=== PATIENT | female | born 1965 | race African-American/Black ===

== ENCOUNTER 2016-12-13 16:30 | Inpatient (IN) | payer MEDICAID ==
[~2016-12-13] VITALS: Ht 165.1 cm; Wt 88.4 kg
[~2016-12-13 16:30] MED LIST: GABA600T2 PO; HYDR8TAB27 PO; INSU100V8 SQ; LISI-167 PO; Morphine ER PO; TRAZ100T15 PO; morphine
[2016-12-13] MEDS ORDERED: SODIUM CHLORIDE FLUSH 10ML SYR IVF ONE (17:00)
[2016-12-13] MEDS ORDERED: ONDANSETRON 2MG/ML, 2ML IVPush ONE (17:00)
[2016-12-13] MEDS ORDERED: ASPIRIN 81 MG TABLET CHEW PO ONE (17:00)
[2016-12-13] MEDS ORDERED: MORPHINE SULFATE 4 MG/ML, 1ML ONE ×2 (17:07→20:15)
[2016-12-13] MEDS ORDERED: ONDANSETRON 2MG/ML, 2ML ONE (17:08)
[2016-12-13 17:29] LABS: BLOOD UREA NITROGEN 11 mg/dL (7-18)
[2016-12-13 17:34] LABS: IS PT STATUS REG ER OR PRE ER? YES
[2016-12-13] MEDS ORDERED: ASPIRIN 81 MG TABLET CHEW ONE (18:12)
[2016-12-13] MEDS: MORPHINE SULFATE 4 MG/ML, 1ML IVPush PRN ×2 (18:27→20:19)
[2016-12-13] MEDS ORDERED: SODIUM CHLORIDE FLUSH 10ML SYR IVF PRN (20:00)
[2016-12-13] MEDS ORDERED: NITROGLYCERIN 0.4 MG BOTTLE (25 TABS) SL PRN (21:30)
[2016-12-13] MEDS: SODIUM CHLORIDE FLUSH 3ML SYRINGE IVF SCH (21:30)
[2016-12-13] MEDS ORDERED: BISACODYL 10 MG SUPP PR PRN (21:30)
[2016-12-13] MEDS ORDERED: ACETAMINOPHEN 325 MG TABLET PO PRN (21:30)
[2016-12-13] MEDS ORDERED: HYDROmorphone 2MG TABLET PO PRN (21:30)
[2016-12-13] MEDS ORDERED: TRAZODONE 100MG TABLET PO SCH (21:30)
[2016-12-13] MEDS ORDERED: INSULIN DETEMIR 100 UNITS/ML, PEN SQ-INSULIN SCH (21:30)
[2016-12-13] MEDS ORDERED: morphine SULFATE 10 MG/ML, 1ML IVPush PRN (21:30)
[2016-12-13] MEDS ORDERED: POLYETHYLENE GLYCOL 17 GM PACKET PO PRN (21:30)
[2016-12-13] MEDS ORDERED: ONDANSETRON 2MG/ML, 2ML IVPush PRN (21:30)
[2016-12-13 22:00] VITALS: BP_SYST 166; BP_SYST 171; BP_SYST 172; BP_DIAS 107; BP_DIAS 112; BP_DIAS 118
[2016-12-13 22:07] VITALS: BP 171/112
[2016-12-13] MEDS ORDERED: FURO-93 PO (22:13)
[2016-12-13] MEDS ORDERED: TOPI15CA4 PO (22:14)
[2016-12-13] MEDS ORDERED: POTA10TA11 PO (22:16)
[2016-12-13] MEDS ORDERED: CARV3.12 PO (22:17)
[2016-12-13] MEDS ORDERED: METH500T7 PO (22:20)
[2016-12-13] MEDS ORDERED: GI Cocktail PO (22:21)
[2016-12-13 23:49] LABS: IS PT STATUS REG ER OR PRE ER? NO
[2016-12-14] MEDS ORDERED: METHOCARBAMOL 500 MG TABLET PO PRN (00:30)
[2016-12-14] MEDS ORDERED: MAALOX/HYOSCYAMINE/LIDOCAINE 45 ML BOTTLE PO PRN (00:30)
[2016-12-14] MEDS: GABAPENTIN 300 MG CAPSULE PO SCH ×3 (01:05→16:48)
[2016-12-14] MEDS: HEPARIN 5,000 UNITS/ML, 1ML SQ SCH ×3 (01:05→16:48)
[2016-12-14] MEDS ORDERED: LABETALOL 5MG/ML, 20ML IVPush PRN (01:30)
[2016-12-14 01:40] VITALS: BP 147/97
[2016-12-14 05:42] LABS: ASPARTATE AMINO TRANSFERASE 28 U/L (15-37); BLOOD UREA NITROGEN 14 mg/dL (7-18)
[2016-12-14 05:48] LABS: IS PT STATUS REG ER OR PRE ER? NO
[2016-12-14] MEDS ORDERED: ASPIRIN 81 MG TABLET EC PO SCH (06:00)
[2016-12-14] MEDS ORDERED: CARVEDILOL 3.125 MG TABLET PO SCH (06:00)
[2016-12-14 06:20] LABS: DIFF TOTAL CELLS COUNTED 100 CELL DIFF
[2016-12-14 06:22] LABS: VERIFY COUNTS? YES
[2016-12-14 07:02] VITALS: BP 149/85
[2016-12-14] MEDS ORDERED: POTASSIUM CHLORIDE 10 MEQ TABLET.ER PO SCH (08:00)
[2016-12-14] MEDS ORDERED: REGADENOSON 0.4 MG/5 ML SYRINGE ONE (08:03)
[2016-12-14] MEDS ORDERED: FUROSEMIDE 20 MG TABLET PO SCH (09:00)
[2016-12-14] MEDS: SODIUM CHLORIDE FLUSH 3ML SYRINGE IVF SCH (09:00)
[2016-12-14] MEDS ORDERED: SENNA/DOCUSATE TABLET PO SCH (09:00)
[2016-12-14] MEDS ORDERED: LISINOPRIL 10 MG TABLET PO SCH (09:00)
[2016-12-14] MEDS ORDERED: INSULIN DETEMIR 100 UNITS/ML, PEN SQ-INSULIN SCH (09:00)
[2016-12-14 13:17] VITALS: BP 137/93
[2016-12-14] MEDS ORDERED: ASPI-515 PO (15:58)
== END 2016-12-14 17:13 | disposition home or self-care (01) | DRG 313 ==
LOC: ED 19:16 → EDIP 19:56 → 5SO 23:15
PROVIDERS: ADMIT Internal Medicine; ATTEND Internal Medicine
PROC: 5A09457 Assistance with Respiratory Ventilation, 24-96 Consecutive Hours, Continuous Positive Airway Pressure (ICD-10-PCS; principal; 2016-12-13)
DX: R07.89 Other chest pain (principal); F11.20 Opioid dependence, uncomplicated; D68.59 Other primary thrombophilia; E44.0 Moderate protein-calorie malnutrition; Z86.718 Personal history of other venous thrombosis and embolism; I10 Essential (primary) hypertension; E11.65 Type 2 diabetes mellitus with hyperglycemia; Z79.4 Long term (current) use of insulin; G47.33 Obstructive sleep apnea (adult) (pediatric); Z86.711 Personal history of pulmonary embolism; G43.909 Migraine, unspecified, not intractable, without status migrainosus; F12.10 Cannabis abuse, uncomplicated; I07.1 Rheumatic tricuspid insufficiency; F17.210 Nicotine dependence, cigarettes, uncomplicated; Z80.9 Family history of malignant neoplasm, unspecified; Z88.1 Allergy status to other antibiotic agents; J45.909 Unspecified asthma, uncomplicated; Z90.710 Acquired absence of both cervix and uterus; Z95.0 Presence of cardiac pacemaker; Z79.82 Long term (current) use of aspirin; Z68.32 Body mass index [BMI] 32.0-32.9, adult
CPT/HCPCS: 36415; 71010; 78452; 80048; 80053; 80061; 82040; 82962; 83036; 83880; 84439; 84443; 84484; 85025; 93005; 93017; 94660; 96374; 96375; 96376; J1644; J2405; J2785; A9502; C9898; J1815

== ENCOUNTER 2016-12-20 21:11 | Emergency (ER) | payer MEDICAID ==
[~2016-12-20] VITALS: Ht 165.1 cm; Wt 89.4 kg
[~2016-12-20 21:11] MED LIST changes: +ASPI-515 PO; +CARV3.12 PO; +FURO-93 PO; +GI Cocktail PO; +METH500T7 PO; +POTA10TA11 PO; +TOPI15CA4 PO
[2016-12-20] MEDS ORDERED: SODIUM CHLORIDE 0.9% 1,000ML IVBOLUS ONE (22:30)
[2016-12-20] MEDS ORDERED: OMNIPAQUE 350 MG/ML, 100ML BOTTLE ONE (22:53)
[2016-12-20 22:55] LABS: BLOOD UREA NITROGEN 12 mg/dL (7-18)
[2016-12-20 23:02] LABS: IS PT STATUS REG ER OR PRE ER? YES
[2016-12-21 00:18] VITALS: BP 155/78
== END 2016-12-21 00:18 | disposition home or self-care (01) ==
LOC: ED 23:46
DX: R07.89 Other chest pain (principal); I10 Essential (primary) hypertension; E11.65 Type 2 diabetes mellitus with hyperglycemia; Z86.718 Personal history of other venous thrombosis and embolism; Z86.711 Personal history of pulmonary embolism; J45.909 Unspecified asthma, uncomplicated
CPT/HCPCS: 36415; 71275; 80048; 82040; 84484; 85025; 93005; 96360; 99285; J7030; Q9967

== ENCOUNTER 2018-04-11 05:08 | Emergency (ER) | payer MEDICAID ==
[~2018-04-11] VITALS: Ht 165.1 cm; Wt 103.9 kg
[~2018-04-11 05:08] MED LIST changes: +TRAZ-137 PO; -TRAZ100T15 PO
[2018-04-11] MEDS ORDERED: ONDANSETRON ODT 4 MG ONE (05:57)
[2018-04-11] MEDS ORDERED: HYDROmorphone 2 MG/ML, 1ML ONE (05:58)
[2018-04-11] MEDS ORDERED: ONDANSETRON ODT 4 MG PO ONE (06:00)
[2018-04-11] MEDS ORDERED: ONDANSETRON 2MG/ML, 2ML IVPush ONE (06:00)
[2018-04-11] MEDS ORDERED: HYDROmorphone 2 MG/ML, 1ML IM ONE (06:00)
[2018-04-11 07:19] VITALS: BP 141/84
== END 2018-04-11 07:41 | disposition home or self-care (01) ==
LOC: ED 06:31
DX: S16.1XXA Strain of muscle, fascia and tendon at neck level, initial encounter (principal); X58.XXXA Exposure to other specified factors, initial encounter; Y93.89 Activity, other specified; Y92.89 Other specified places as the place of occurrence of the external cause; Y99.8 Other external cause status; M54.12 Radiculopathy, cervical region; I10 Essential (primary) hypertension; E11.9 Type 2 diabetes mellitus without complications; J45.909 Unspecified asthma, uncomplicated; G89.29 Other chronic pain; M54.9 Dorsalgia, unspecified
CPT/HCPCS: 72050; 96372; 99284; J1170; Q0162

== ENCOUNTER 2018-04-24 13:44 | Emergency (ER) | payer MEDICAID ==
[~2018-04-24] VITALS: Ht 165.1 cm; Wt 104.9 kg
[2018-04-24] MEDS ORDERED: METOCLOPRAMIDE 10MG TABLET ONE (14:57)
[2018-04-24] MEDS ORDERED: DIPHENHYDRAMINE 25 MG CAPSULE ONE (14:57)
[2018-04-24] MEDS ORDERED: KETOROLAC 30 MG/1 ML ONE (14:57)
[2018-04-24] MEDS ORDERED: METOCLOPRAMIDE 10MG TABLET PO ONE (15:00)
[2018-04-24] MEDS ORDERED: KETOROLAC 30 MG/1 ML IM ONE (15:00)
[2018-04-24] MEDS ORDERED: DIPHENHYDRAMINE 25 MG CAPSULE PO ONE (15:00)
[2018-04-24 16:53] VITALS: BP 148/86
== END 2018-04-24 16:55 | disposition home or self-care (01) ==
LOC: ED 16:10
DX: S82.252A Displaced comminuted fracture of shaft of left tibia, initial encounter for closed fracture (principal); G43.909 Migraine, unspecified, not intractable, without status migrainosus; I10 Essential (primary) hypertension; E11.9 Type 2 diabetes mellitus without complications; Z88.0 Allergy status to penicillin; Z88.6 Allergy status to analgesic agent; Z88.5 Allergy status to narcotic agent; W01.0XXA Fall on same level from slipping, tripping and stumbling without subsequent striking against object, initial encounter; Y93.89 Activity, other specified; Y92.89 Other specified places as the place of occurrence of the external cause; Y99.8 Other external cause status
CPT/HCPCS: 29515; 73590; 73610; 73700; 96372; 99284; J1885; Q0163

== ENCOUNTER 2018-05-07 08:42 | Emergency (ER) | payer MEDICAID ==
[~2018-05-07] VITALS: Ht 165.1 cm; Wt 103.1 kg
[2018-05-07] MEDS ORDERED: ALBUTEROL/IPRATROPIUM 2.5MG/0.5MG, 3 ML NPPB SCH (09:30)
[2018-05-07] MEDS ORDERED: ALBUTEROL SULFATE 2.5 MG/3 ML NPPB ONE (09:55)
[2018-05-07] MEDS ORDERED: ALBUTEROL SULFATE 2.5MG/0.5ML ONE (09:55)
[2018-05-07] MEDS ORDERED: ALBUTEROL/IPRATROPIUM 2.5MG/0.5MG, 3 ML ONE (09:55)
[2018-05-07] MEDS ORDERED: ALBUTEROL/IPRATROPIUM 2.5MG/0.5MG, 3 ML NEB ONE (09:55)
[2018-05-07 10:00] VITALS: BP 146/119
== END 2018-05-07 10:40 | disposition home or self-care (01) ==
LOC: ED 09:10
DX: J45.41 Moderate persistent asthma with (acute) exacerbation (principal); M75.31 Calcific tendinitis of right shoulder; I10 Essential (primary) hypertension; E11.9 Type 2 diabetes mellitus without complications; J45.909 Unspecified asthma, uncomplicated; G43.909 Migraine, unspecified, not intractable, without status migrainosus; M54.9 Dorsalgia, unspecified; M54.2 Cervicalgia; G89.29 Other chronic pain; Z79.899 Other long term (current) drug therapy
CPT/HCPCS: 72050; 73030; 93005; 94640; 99284; J7512; J7613; J7620

== ENCOUNTER 2018-08-15 04:12 | Emergency (ER) | payer MEDICAID ==
[~2018-08-15] VITALS: Ht 162.6 cm; Wt 96.7 kg
[~2018-08-15 04:12] MED LIST changes: -GABA600T2 PO; +GABA600T7 PO
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
[2018-08-15] MEDS ORDERED: ALBUTEROL/IPRATROPIUM 2.5MG/0.5MG, 3 ML NPPB SCH (05:00)
[2018-08-15 05:27] LABS: ALBUMIN 3.2 g/dL (3.4-5.0); ANION GAP 10 mmol/L (5-15); CALCIUM 9.1 mg/dL (8.5-10.1); CHLORIDE 100 mmol/L (98-107)
[2018-08-15 05:28] LABS: CREATININE 1.14 mg/dL (0.55-1.02)
[2018-08-15 05:41] LABS: BASOPHILS # (AUTO) 0.01 x10^3/uL (0-0.1); BASOPHILS % (AUTO) 0 % (0-1); EOSINOPHILS # (AUTO) 0.01 x10^3/uL (0-0.4); EOSINOPHILS % (AUTO) 0 % (1-7); LYMPHOCYTES # (AUTO) 1.19 x10^3/uL (1-3.4); LYMPHOCYTES % (AUTO) 29 % (22-44); MD NO; MEAN CORPUSCULAR HEMOGLOBIN 27.2 pg (27.0-34.8); MEAN CORPUSCULAR HGB CONC 33.2 g/dL (32.4-35.8); MEAN CORPUSCULAR VOLUME 81.9 fL (80-100); MEAN PLATELET VOLUME 9.8 fL (7.4-10.4); MONOCYTES # (AUTO) 0.48 x10^3/uL (0.2-0.8); MONOCYTES % (AUTO) 12 % (2-9); NEUTROPHILS # (AUTO) 2.45 x10^3/uL (1.8-6.8); NEUTROPHILS % (AUTO) 59 % (42-75); PLATELET COUNT 145 x10^3/uL (130-400); RED CELL DISTRIBUTION WIDTH 16.8 % (9.6-15.2)
[2018-08-15 05:54] VITALS: BP 119/70
--- NOTE | 2018-08-15 05:54 | NUR ---
LAB AT BEDSIDE FOR DRAW. PT JUST BACK FROM CXR. NO IMMEDIATE NEEDS. VSS. CALL LIGHT WITHIN REACH.
[2018-08-15 06:05] LABS: PH, VENOUS 7.417 pH (7.320-7.420)
[2018-08-15] MEDS ORDERED: SODIUM CHLORIDE 0.9% 1,000ML IVBOLUS ONE (06:30)
[2018-08-15 06:43] LABS: ACETONE, SERUM Small (20mg/dL) mg/dL (Negative)
--- NOTE | 2018-08-15 06:56 | NUR ---
I AM ASSUMING CARE OF THIS PT AT THIS TIME FROM AZUCENA (KAVYA) AT THIS TIME. SBAR REPORT WAS EXCHANGED AT THE BEDSIDE.
--- NOTE | 2018-08-15 07:28 | NUR ---
PT TO AND FROM CT W TECH. SHE TOLERATED THE IMAGING WELL. WE WILL AWAIT RESULTS, AND I WILL MONITOR AND TREAT ORDERED, WELL PRN.
== END 2018-08-15 08:08 | disposition home or self-care (01) ==
LOC: ED 07:04
DX: J18.9 Pneumonia, unspecified organism (principal); E11.65 Type 2 diabetes mellitus with hyperglycemia; I10 Essential (primary) hypertension; G43.909 Migraine, unspecified, not intractable, without status migrainosus; Z88.1 Allergy status to other antibiotic agents; Z79.899 Other long term (current) drug therapy; Z95.0 Presence of cardiac pacemaker; Z90.710 Acquired absence of both cervix and uterus; Z79.84 Long term (current) use of oral hypoglycemic drugs; Z79.4 Long term (current) use of insulin
CPT/HCPCS: 36415; 71046; 71250; 80048; 82010; 82040; 82803; 85025; 93005; 94640; 96360; 99284; J7030; J7512; J7620

== ENCOUNTER 2019-04-24 22:15 | Emergency (ER) | payer OTHER, MEDICAID ==
[~2019-04-24] VITALS: Ht 165.1 cm; Wt 97.0 kg
[~2019-04-24 22:15] MED LIST changes: +SUMA100T4 PO
[2019-04-24 22:51] LABS: BASOPHILS # (AUTO) 0.03 x10^3/uL (0-0.1); BASOPHILS % (AUTO) 0 % (0-1); EOSINOPHILS % (AUTO) 2 % (1-7); LYMPHOCYTES # (AUTO) 2.25 x10^3/uL (1-3.4); LYMPHOCYTES % (AUTO) 33 % (22-44); MD NO; MEAN CORPUSCULAR HEMOGLOBIN 29.6 pg (27.0-34.8); MEAN CORPUSCULAR HGB CONC 32.5 g/dL (32.4-35.8); MEAN PLATELET VOLUME 8.9 fL (7.4-10.4); MONOCYTES # (AUTO) 0.51 x10^3/uL (0.2-0.8); MONOCYTES % (AUTO) 8 % (2-9); NEUTROPHILS # (AUTO) 3.96 x10^3/uL (1.8-6.8); NEUTROPHILS % (AUTO) 58 % (42-75); PLATELET COUNT 198 x10^3/uL (130-400); RED BLOOD COUNT 4.61 x10^6/uL (3.82-5.3)
[2019-04-24] MEDS ORDERED: ONDANSETRON 2MG/ML, 2ML IVPush ONE (23:00)
[2019-04-24] MEDS ORDERED: SODIUM CHLORIDE FLUSH 10ML SYR IVF ONE (23:00)
[2019-04-24 23:02] LABS: ALANINE AMINOTRANSFERASE 21 U/L (12-78); ALBUMIN 3.3 g/dL (3.4-5.0); ANION GAP 7 mmol/L (5-15); CALCIUM 9.4 mg/dL (8.5-10.1); CHLORIDE 111 mmol/L (98-107); CREATININE 1.07 mg/dL (0.55-1.02)
[2019-04-24 23:07] LABS: ALKALINE PHOSPHATASE 99 U/L (45-117); BILIRUBIN,TOTAL 0.2 mg/dL (0.2-1.0); TOTAL PROTEIN 7.4 g/dL (6.4-8.2); TROPONIN I < 0.015 ng/mL (0.000-0.045)
[2019-04-24 23:13] LABS: INTERNATIONAL NORMALIZED RATIO 0.99 (0.93-1.1); PROTHROMBIN TIME 10.4 Seconds (9.6-11.5)
[2019-04-24] MEDS ORDERED: MORPHINE SULFATE 4 MG/ML, 1ML ONE (23:23)
[2019-04-24] MEDS ORDERED: ONDANSETRON 2MG/ML, 2ML ONE (23:23)
[2019-04-24] MEDS: MORPHINE SULFATE 4 MG/ML, 1ML IVPush PRN (23:29)
--- NOTE | 2019-04-24 23:36 | NUR ---
PIV PLACED. PT MEDICATED FOR PAIN. PT LAYING ON BED IN NAD. VSS. CALL LIGHT IN REACH
--- NOTE | 2019-04-25 00:51 | NUR ---
CT PENDING IV
[2019-04-25] MEDS ORDERED: MORPHINE SULFATE 4 MG/ML, 1ML ONE (00:58)
[2019-04-25] MEDS: MORPHINE SULFATE 4 MG/ML, 1ML IVPush PRN (01:00)
[2019-04-25 01:02] VITALS: BP 130/79
--- NOTE | 2019-04-25 01:03 | NUR ---
PT REMEDICATED FOR PAIN. VSS. PT WAITING FOR CT
--- NOTE | 2019-04-25 01:14 | NUR ---
PT TO CT
[2019-04-25] MEDS ORDERED: OMNIPAQUE 350 MG/ML, 100ML BOTTLE ONE (01:16)
== END 2019-04-25 02:34 | disposition home or self-care (01) ==
LOC: ED 22:46
DX: K27.3 Acute peptic ulcer, site unspecified, without hemorrhage or perforation (principal); R10.13 Epigastric pain; I10 Essential (primary) hypertension; E11.21 Type 2 diabetes mellitus with diabetic nephropathy; J45.909 Unspecified asthma, uncomplicated
CPT/HCPCS: 36415; 71045; 74177; 76700; 80053; 83690; 84484; 85025; 85610; 85730; 93005; 96374; 96375; 96376; 99284; J2270; J2405; Q9967

== ENCOUNTER 2019-05-04 17:41 | Emergency (ER) | payer OTHER, MEDICAID ==
[~2019-05-04] VITALS: Ht 165.1 cm; Wt 92.6 kg
[2019-05-04] MEDS ORDERED: HYDROmorphone 1 MG/ML, 1ML VIAL IM ONE (20:30)
[2019-05-04] MEDS ORDERED: KETOROLAC 30 MG/1 ML IM ONE (20:30)
[2019-05-04] MEDS ORDERED: KETOROLAC 60 MG/2 ML ONE (20:40)
[2019-05-04] MEDS ORDERED: HYDROmorphone 1 MG/ML, 1ML VIAL ONE (20:40)
[2019-05-04 21:50] VITALS: BP 156/71
== END 2019-05-04 21:52 | disposition home or self-care (01) ==
LOC: ED 21:46
DX: M54.42 Lumbago with sciatica, left side (principal); I10 Essential (primary) hypertension; G89.29 Other chronic pain; J45.909 Unspecified asthma, uncomplicated; E11.9 Type 2 diabetes mellitus without complications
CPT/HCPCS: 72110; 96372; 99283; J1170; J1885; J7512

== ENCOUNTER 2019-05-14 12:44 | Emergency (ER) | payer MEDICAID, OTHER ==
[~2019-05-14] VITALS: Ht 162.6 cm; Wt 90.9 kg
[2019-05-14 12:55] VITALS: BP 161/87
== END 2019-05-14 14:00 | disposition home or self-care (01) ==
LOC: ED 13:50
DX: J00 Acute nasopharyngitis [common cold] (principal); R06.00 Dyspnea, unspecified; R07.89 Other chest pain; I10 Essential (primary) hypertension; J45.909 Unspecified asthma, uncomplicated; E11.9 Type 2 diabetes mellitus without complications; F17.200 Nicotine dependence, unspecified, uncomplicated; Z87.11 Personal history of peptic ulcer disease; Z90.710 Acquired absence of both cervix and uterus; Z95.0 Presence of cardiac pacemaker
CPT/HCPCS: 71046; 99283

== ENCOUNTER 2019-05-19 22:09 | Emergency (ER) | payer MEDICAID ==
[~2019-05-19] VITALS: Ht 165.1 cm; Wt 92.3 kg
[2019-05-19 22:13] VITALS: BP 118/79
[2019-05-19] MEDS ORDERED: ALBUTEROL/IPRATROPIUM 2.5MG/0.5MG, 3 ML ONE (22:53)
[2019-05-19] MEDS ORDERED: ALBUTEROL/IPRATROPIUM 2.5MG/0.5MG, 3 ML NPPB ONE (23:00)
[2019-05-19] MEDS ORDERED: IBUPROFEN 600 MG TABLET PO ONE (23:00)
[2019-05-19] MEDS ORDERED: IBUPROFEN 200 MG TABLET ONE (23:55)
== END 2019-05-20 00:08 | disposition home or self-care (01) ==
LOC: ED 23:59
DX: S93.402A Sprain of unspecified ligament of left ankle, initial encounter (principal); S93.602A Unspecified sprain of left foot, initial encounter; H69.83 Other specified disorders of Eustachian tube, bilateral; J45.901 Unspecified asthma with (acute) exacerbation; F17.210 Nicotine dependence, cigarettes, uncomplicated; R68.83 Chills (without fever); Z88.5 Allergy status to narcotic agent; Z88.1 Allergy status to other antibiotic agents; Z88.6 Allergy status to analgesic agent; Z91.048 Other nonmedicinal substance allergy status; W01.0XXA Fall on same level from slipping, tripping and stumbling without subsequent striking against object, initial encounter; Y93.89 Activity, other specified; Y92.89 Other specified places as the place of occurrence of the external cause; Y99.8 Other external cause status
CPT/HCPCS: 71045; 73610; 73630; 94640; 99283; J7620

== ENCOUNTER → 2019-05-19 | Outpatient (CLI) | payer MEDICAID, OTHER | END | disposition home or self-care (01) | LOC: CFH 06:43 | PROVIDERS: ATTEND Internal Medicine Cardiovascular Disease | DX: I08.8 Other rheumatic multiple valve diseases (principal); E78.5 Hyperlipidemia, unspecified; I10 Essential (primary) hypertension | CPT/HCPCS: 93306 ==

== ENCOUNTER 2019-07-02 02:42 | Emergency (ER) | payer MEDICAID ==
[~2019-07-02] VITALS: Ht 165.1 cm; Wt 91.5 kg
--- NOTE | 2019-07-02 03:29 | NUR ---
pt to room from lobby
--- NOTE | 2019-07-02 03:32 | NUR ---
PT TO RM. CARE ASSUMED. PT C/O L FOOT PAIN WITH NUMBNESS ALONG TOP. PT STATES SHE TRIPPED OFF A CURB 1 MONTH AGO. STATES SHE WAS SEEN AT THAT TIME AND CLEARED. PT STATES PAIN HAS CONTINUED AND PAIN IS GETTING WORSE. DENIES FURTHER INJURY. ERP AT BEDSIDE TO [facility]I.
[2019-07-02] MEDS ORDERED: IBUPROFEN 800 MG TABLET ONE (03:54)
[2019-07-02] MEDS ORDERED: IBUPROFEN 800 MG TABLET PO ONE (04:00)
[2019-07-02 04:10] VITALS: BP 145/96
== END 2019-07-02 04:12 | disposition home or self-care (01) ==
LOC: ED 03:55
DX: M79.672 Pain in left foot (principal); E11.40 Type 2 diabetes mellitus with diabetic neuropathy, unspecified; F17.200 Nicotine dependence, unspecified, uncomplicated; W01.0XXA Fall on same level from slipping, tripping and stumbling without subsequent striking against object, initial encounter; Y93.89 Activity, other specified; Y92.89 Other specified places as the place of occurrence of the external cause; Y99.8 Other external cause status
CPT/HCPCS: 12011; 99282; 99283

== ENCOUNTER 2019-08-17 05:08 | Emergency (ER) | payer MEDICAID ==
[~2019-08-17] VITALS: Ht 165.1 cm; Wt 101.8 kg
[~2019-08-17 05:08] MED LIST changes: -TRAZ-137 PO; +TRAZ-175 PO
[2019-08-17 05:11] VITALS: BP 158/81
[2019-08-17] MEDS ORDERED: HUMALOG (05:16)
[2019-08-17] MEDS ORDERED: TRULICITY (05:16)
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
[2019-08-17] MEDS ORDERED: KETOROLAC 30 MG/1 ML IM ONE (05:30)
[2019-08-17] MEDS ORDERED: METHOCARBAMOL 750 MG TABLET PO ONE (05:30)
[2019-08-17] MEDS ORDERED: METHOCARBAMOL 750 MG TABLET ONE (05:33)
[2019-08-17] MEDS ORDERED: KETOROLAC 30 MG/1 ML ONE (05:33)
--- NOTE | 2019-08-17 05:40 | NUR ---
PATIENT TO IMAGING
--- NOTE | 2019-08-17 06:35 | NUR ---
PATIENT RESTING ON GURNEY, STATES NO RELIEF FROM MEDICATIONS AT THIS TIME. MD NOTIFIED. RESPIRATIONS EVEN AND UNLABORED. DENIES NEEDS
--- NOTE | 2019-08-17 06:54 | NUR ---
REPORT GIVEN TO KAVYA REYNOLDS. PLAN OF CARE DISCUSSED.
--- NOTE | 2019-08-17 07:10 | NUR ---
Patient given discharge instructions and they have confirmed that they understand the instructions. Patient ambulatory with steady gait.
== END 2019-08-17 07:11 | disposition home or self-care (01) ==
LOC: ED 07:00
DX: G89.11 Acute pain due to trauma (principal); M54.5 Low back pain; M62.830 Muscle spasm of back; I10 Essential (primary) hypertension; E11.65 Type 2 diabetes mellitus with hyperglycemia; G43.909 Migraine, unspecified, not intractable, without status migrainosus; E11.40 Type 2 diabetes mellitus with diabetic neuropathy, unspecified; E11.21 Type 2 diabetes mellitus with diabetic nephropathy; J45.909 Unspecified asthma, uncomplicated; Z90.710 Acquired absence of both cervix and uterus; W18.30XA Fall on same level, unspecified, initial encounter; Y93.89 Activity, other specified; Y92.009 Unspecified place in unspecified non-institutional (private) residence as the place of occurrence of the external cause; Y99.8 Other external cause status
CPT/HCPCS: 72072; 72110; 96372; 99284; J1885

== ENCOUNTER 2019-10-18 09:17 | Emergency (ER) | payer MEDICAID ==
[~2019-10-18] VITALS: Ht 165.1 cm; Wt 97.0 kg
[~2019-10-18 09:17] MED LIST changes: +HUMALOG; +TRULICITY
[2019-10-18] MEDS ORDERED: KETOROLAC 30 MG/1 ML ONE (09:44)
--- NOTE | 2019-10-18 09:53 | NUR ---
PT PRESENTS TO ED WITH C/O LEFT SHOULDER PAIN SINCE HYPERFLEXION INJURY AT WORK WHILE LIFTING A BOX OF "GLASSES" OVERHEAD WITH LEFT ARM ONE WEEK AGO. PT STATES YESTERDAY SHE BEGAN TO HAVE NUMBNESS TO FINGERS OF LEFT HAND (THUMB, 1ST, 2ND, 3RD, 4TH DIGITS AFFECTED) YESTERDAY, WELL WEAKNESS TO LEFT HAND. PT SEEN AND EXAMINED BY HEIDI PEREZ. C SPINE ORDERED, HOWEVER PER [facility] PT DOES NOT NEED C COLLAR/C SPINE PRECAUTIONS. PT MEDICATED PER EMAR, TOLERATED WELL. PT TO RADIOLOGY AT THIS TIME.
[2019-10-18] MEDS ORDERED: KETOROLAC 30 MG/1 ML IM ONE (10:00)
--- NOTE | 2019-10-18 11:00 | NUR ---
HEIDI PEREZ AT BEDSIDE FOR REASSESSMENT.
[2019-10-18 11:56] VITALS: BP 120/80
--- NOTE | 2019-10-18 11:57 | NUR ---
PT GIVEN DC INSTRUCTIONS AND SCRIPT, PT EDUCATED REGARDING DC RX FOR OXYCODONE. PT A&O, REPSS EVEN AND UNLABORED, AMBULATORY WITH STEADY GAIT TO DC DESK.
== END 2019-10-18 11:58 | disposition home or self-care (01) ==
LOC: ED 10:24
DX: M75.32 Calcific tendinitis of left shoulder (principal); M54.12 Radiculopathy, cervical region; R44.9 Unspecified symptoms and signs involving general sensations and perceptions; I10 Essential (primary) hypertension; E11.9 Type 2 diabetes mellitus without complications; Z88.1 Allergy status to other antibiotic agents; Z88.8 Allergy status to other drugs, medicaments and biological substances
CPT/HCPCS: 72125; 73030; 96372; 99284; J1885

== ENCOUNTER 2019-11-08 12:25 | Emergency (ER) | payer MEDICAID ==
[~2019-11-08] VITALS: Ht 165.1 cm; Wt 98.9 kg
[2019-11-08] MEDS ORDERED: KETOROLAC 30 MG/1 ML IM ONE (13:00)
[2019-11-08] MEDS ORDERED: DIAZEPAM 5 MG TABLET PO ONE (13:00)
[2019-11-08] MEDS ORDERED: DIAZEPAM 5 MG TABLET ONE (13:24)
[2019-11-08] MEDS ORDERED: KETOROLAC 60 MG/2 ML ONE (13:24)
[2019-11-08 13:31] VITALS: BP 144/66
== END 2019-11-08 14:03 | disposition home or self-care (01) ==
LOC: ED 13:00
DX: M54.16 Radiculopathy, lumbar region (principal); M54.5 Low back pain; I10 Essential (primary) hypertension; J45.909 Unspecified asthma, uncomplicated; G43.909 Migraine, unspecified, not intractable, without status migrainosus; F17.200 Nicotine dependence, unspecified, uncomplicated; E11.65 Type 2 diabetes mellitus with hyperglycemia; Z95.0 Presence of cardiac pacemaker; Z90.710 Acquired absence of both cervix and uterus
CPT/HCPCS: 96372; 99283; J1885; J7512

== ENCOUNTER → 2019-12-05 | Outpatient (CLI) | payer MEDICAID ==
[~2019-12-05] MED LIST changes: +CPAP; +SIMV40TA20 PO
== END | disposition home or self-care (01) ==
LOC: CVU 07:17
PROVIDERS: ATTEND Nurse Practitioner Family
DX: I86.8 Varicose veins of other specified sites (principal); E11.9 Type 2 diabetes mellitus without complications
CPT/HCPCS: 93970

== ENCOUNTER 2019-12-06 18:22 | Emergency (ER) | payer MEDICAID ==
[~2019-12-06] VITALS: Ht 165.1 cm; Wt 104.3 kg
[~2019-12-06 18:22] MED LIST changes: -SIMV40TA20 PO
--- NOTE | 2019-12-06 18:30 | NUR ---
Pt BIB [facility]-pt states that today while she was at work she began feeling dizzy, then sat down and started having 10/10 midline CP that radiated to the L side of her chest. Pt then said she developed a L sided JETER, as well as L UE and LE weakness and numbness on the L side of her face as well as tingling in her L UE and L LE. Pt states onset of sx 1750. Pt speaking in full sentences, resp even and unlabored. Pt A&O x4, no other neuro sx. Pt placed in gown, positioned for comfort in bed. Continuous heart, oxygen and BP monitors applied.
--- NOTE | 2019-12-06 18:38 | NUR ---
Pt now states that sx started at 1430 this afternoon.
--- NOTE | 2019-12-06 18:39 | NUR ---
Report to Dequan HOFF.
--- NOTE | 2019-12-06 18:42 | NUR ---
PT to CT via [facility].
--- NOTE | 2019-12-06 18:48 | NUR ---
Updated Dr. Rosales on adjusted time of sx onset. No new orders recieved.
[2019-12-06] MEDS ORDERED: DIPHENHYDRAMINE 50 MG/ML, 1ML IV STA (18:51)
[2019-12-06] MEDS ORDERED: PROCHLORPERAZINE 5 MG/ML, 2ML IV STA (18:51)
--- NOTE | 2019-12-06 19:14 | NUR ---
REPORT FROM ORTIZ HOFF.
--- NOTE | 2019-12-06 19:18 | NUR ---
PT UP TO AND FROM BATHROOM ON STEADY GAIT. PLACED BACK ON CARDIAC AND VITALS MONITORS, SIDE RAILS UP AND CALL LIGHT WITHIN REACH.
[2019-12-06 19:22] LABS: BASOPHILS # (AUTO) 0.03 x10^3/uL (0-0.1); BASOPHILS % (AUTO) 1 % (0-1); EOSINOPHILS # (AUTO) 0.21 x10^3/uL (0-0.4); EOSINOPHILS % (AUTO) 4 % (1-7); LYMPHOCYTES # (AUTO) 2.11 x10^3/uL (1-3.4); LYMPHOCYTES % (AUTO) 36 % (22-44); MD NO; MEAN CORPUSCULAR HEMOGLOBIN 28.7 pg (27.0-34.8); MEAN CORPUSCULAR VOLUME 86.8 fL (80-100); MEAN PLATELET VOLUME 8.4 fL (7.4-10.4); MONOCYTES # (AUTO) 0.36 x10^3/uL (0.2-0.8); MONOCYTES % (AUTO) 6 % (2-9); NEUTROPHILS # (AUTO) 3.21 x10^3/uL (1.8-6.8); NEUTROPHILS % (AUTO) 54 % (42-75); PLATELET COUNT 228 x10^3/uL (130-400); RED BLOOD COUNT 4.58 x10^6/uL (3.82-5.3); RED CELL DISTRIBUTION WIDTH 15.9 % (9.6-15.2)
[2019-12-06 19:30] LABS: INTERNATIONAL NORMALIZED RATIO 0.93 (0.93-1.1); PROTHROMBIN TIME 9.9 Seconds (9.6-11.5)
[2019-12-06] MEDS ORDERED: DIAZEPAM 5 MG/ML, 2ML IV ONE (19:30)
--- NOTE | 2019-12-06 19:32 | NUR ---
PT TO MRI.
[2019-12-06] MEDS ORDERED: PROCHLORPERAZINE 5 MG/ML, 2ML ONE (20:05)
[2019-12-06] MEDS ORDERED: DIPHENHYDRAMINE 50 MG/ML, 1ML ONE (20:05)
[2019-12-06] MEDS ORDERED: ASPIRIN 81 MG TABLET CHEW ONE (20:30)
[2019-12-06] MEDS ORDERED: NITROGLYCERIN OINT 2%, 1GM TP ONE ×2 (20:30)
[2019-12-06 20:34] LABS: TROPONIN I < 0.015 ng/mL (0.000-0.045)
[2019-12-06] MEDS ORDERED: ASPIRIN 81 MG TABLET CHEW PO ONE (21:00)
--- NOTE | 2019-12-06 21:00 | NUR ---
PT IN CT FOR CTA.
--- NOTE | 2019-12-06 21:11 | NUR ---
PT BACK FROM CT. VSS.
[2019-12-06] MEDS ORDERED: SODIUM CHLORIDE 0.9% 1,000ML IVBOLUS ONE (21:30)
[2019-12-06] MEDS ORDERED: SODIUM CHLORIDE FLUSH 10ML SYR IVF ONE (21:30)
--- NOTE | 2019-12-06 21:52 | NUR ---
PT DESATTING TO 85% ON RA WHILE SLEEPING, PLACED ON 2L NC. VSS.
--- NOTE | 2019-12-06 22:21 | NUR ---
ASSISTED PT TO [facility].
[2019-12-06 22:23] LABS: TROPONIN I < 0.015 ng/mL (0.000-0.045)
[2019-12-06] MEDS ORDERED: SIMV40TA20 PO (22:35)
[2019-12-06 22:47] VITALS: BP 136/77
== END 2019-12-06 23:18 | disposition home or self-care (01) ==
LOC: ED 18:47
DX: R07.2 Precordial pain (principal); R20.2 Paresthesia of skin; R51 Headache; R06.02 Shortness of breath; R53.1 Weakness; R94.31 Abnormal electrocardiogram [ECG] [EKG]; I10 Essential (primary) hypertension; E11.9 Type 2 diabetes mellitus without complications; G89.29 Other chronic pain; J45.909 Unspecified asthma, uncomplicated; Z90.710 Acquired absence of both cervix and uterus; Z95.0 Presence of cardiac pacemaker; F17.200 Nicotine dependence, unspecified, uncomplicated
CPT/HCPCS: 70450; 70551; 71275; 80047; 82962; 84484; 85025; 85610; 85730; 93005; 96374; 96375; 99285; J0780; J1200; J7030